=== PATIENT | male | born 1990 | race American Indian/Alaskan Native ===

== ENCOUNTER 2019-03-26 12:28 | Emergency (ER) | payer SELFPAY ==
--- NOTE | 2019-03-26 13:34 | EDM.PDOC ---
ED HPI GENERAL MEDICAL PROBLEM - General Chief Complaint: Lower Extremity Injury/Pain Stated Complaint: RT ANKLE INJURY Time Seen by Provider: 03/26/19 13:23 Source of Information: Reports: Patient History Limitations: Reports: No Limitations - History of Present Illness INITIAL COMMENTS - FREE TEXT/NARRATIVE: 28-year-old male presents for evaluation and treatment of right ankle injury. Patient reports last night he was [place] [employer] this weekend and stepped into a gopher hole. This occurred around 1800 yesterday. States he has been icing it and utilizing compression but he has significant pain to the right lateral ankle. Swelling as well. Has been walking on it but reports pain with this. Reports his fractured ankle in the past but he has no hardware in there. He reports when he fell he heard some snapping and popping sounds. Unsure exactly of his foot inverted or how he fell. Denies any numbness or tingling to the foot and ankle. Difficulty walking due to pain. Location: Reports: Lower Extremity, Right Right Ankle Pain Score (Numeric/FACES): 8 - Related Data Allergies Allergy/AdvReac Type Severity Reaction Status Date / Time No Known Allergies Allergy Verified 03/26/19 12:37 Home Meds: Home Meds Ibuprofen 600 mg PO Q6HR PRN 03/26/19 [History] Past Medical History - Past Surgical History HEENT Surgical History: Reports: Oral Surgery Other HEENT Surgeries/Procedures: [place] tooth Social & Family History - Tobacco Use Packs/Tins Daily: 1 - Caffeine Use Caffeine Use: Reports: Tea - Alcohol Use Days Per Week of Alcohol Use: 2 Number of Drinks Per Day: 20 Total Drinks Per Week: 40 - Recreational Drug Use Recreational Drug Use: No Review of Systems - Review of Systems Review Of Systems: See Below Musculoskeletal: Reports: Foot Pain (Right), Joint Pain (Right ankle), Joint Swelling (Right ankle) Skin: Denies: Bruising, Erythema, Wound Neurological: Reports: Difficulty Walking. Denies: Numbness, Tingling ED EXAM, GENERAL - Physical Exam Exam: See Below Exam Limited By: No Limitations General Appearance: Alert, WD/WN, No Apparent Distress, Obese Throat/Mouth: Normal Inspection, Normal Voice, No Airway Compromise Respiratory/Chest: No Respiratory Distress Cardiovascular: Normal Peripheral Pulses, Regular Rate, Rhythm Peripheral Pulses: 2+: Radial (L), Radial (R) Extremities: Joint Swelling (right ankle), Limited Range of Motion (right ankle) , Other (pain to the right lateral malleolus, minor discomfort across the dorsal foot). No: Increased Warmth Neurological: Alert, Oriented, Normal Cognition Psychiatric: Normal Affect, Normal Mood Skin Exam: Warm, Dry, Normal Color. No: Ecchymosis, Erythema, Increased Warmth Course - Vital Signs Last Recorded V/S: Last Vital Signs Temp 96.5 F 03/26/19 12:39 Pulse 88 03/26/19 12:39 Resp 18 03/26/19 12:39 BP 153/99 H 03/26/19 12:39 Pulse Ox 99 03/26/19 12:39 - Orders/Labs/Meds Orders: Active Orders 24 hr Category Date Time Status Durable Medical Equipment for Discharge [DME for Oth 03/26/19 14:47 Ordered Discharge] [COMM] Stat - Radiology Interpretation Free Text/Narrative:: Right ankle: Four views of the right ankle were obtained. Comparison: No previous right ankle study. Ankle mortise is symmetric. Soft tissue swelling is seen. Calcifications are noted off the lateral talus believed to be due to old injury. Calcifications are also noted off the medial talus also felt to be due to old injury. No acute fracture or other bony abnormality is seen. Impression: 1. Soft tissue swelling. Old injury as noted above. 2. No acute bony abnormality is appreciated. Right foot: 4 views of the right foot were obtained. Comparison: No previous foot exam. Joint spaces are maintained. No fracture, dislocation or other bony abnormality is seen. Impression: 1. Nothing acute is seen on right foot exam. - Re-Assessments/Exams Free Text/Narrative Re-Assessment/Exam: 03/26/19 14:46 reviewed xray results with the patient. will discharge home at this time. Recommendations given for ankle sprain. Discharge instructions as documented. Departure - Departure Time of Disposition: 14:47 Disposition: Home, Self-Care 01 Condition: Fair Clinical Impression: Ankle sprain - Discharge Information *PRESCRIPTION DRUG MONITORING PROGRAM REVIEWED*: No *COPY OF PRESCRIPTION DRUG MONITORING REPORT IN PATIENT CHANDU: No Instructions: Ankle Sprain With Phase II Rehab-SportsMed, Ankle Sprain, Easy-to -Read Referrals: PCP,None [Primary Care Provider] - Robinson Cavanaugh MD [Physician] - Forms: ED Department Discharge, ED Return to Work/School Form Additional Instructions: crutches and KOURTNEY bandage x 1 week OTC tylenol and motrin as needed for pain and swelling. Ice and elevate the ankles much as you able to.. may work, recommend light duty will and using crutches. Follow-up with ortho in 2 weeks if not better. Recommend Dr. Cavanaugh, call to schedule with him. Please return to the ER if you symptoms change or worsen. - My Orders Last 24 Hours: My Active Orders 03/26/19 14:47 Durable Medical Equipment for Discharge [DME for Discharge] [COMM] Stat - Assessment/Plan Last 24 Hours: My Active Orders 03/26/19 14:47 Durable Medical Equipment for Discharge [DME for Discharge] [COMM] Stat
--- NOTE | 2019-03-26 14:24 | CR ---
Right ankle: Four views of the right ankle were obtained. Comparison: No previous right ankle study. Ankle mortise is symmetric. Soft tissue swelling is seen. Calcifications are noted off the lateral talus believed to be due to old injury. Calcifications are also noted off the medial talus also felt to be due to old injury. No acute fracture or other bony abnormality is seen. Impression: 1. Soft tissue swelling. Old injury as noted above. 2. No acute bony abnormality is appreciated. Diagnostic code #2
--- NOTE | 2019-03-26 14:44 | CR ---
Right foot: Four views of the right foot were obtained. Comparison: No previous foot exam. Joint spaces are maintained. No fracture, dislocation or other bony abnormality is seen. Impression: 1. Nothing acute is seen on right foot exam. Diagnostic code #1
== END 2019-03-26 15:15 | disposition home or self-care (01) ==
LOC: JD.ED 12:28
DX: S93.401A Sprain of unspecified ligament of right ankle, initial encounter (principal); Z98.890 Other specified postprocedural states; W17.2XXA Fall into hole, initial encounter
CPT/HCPCS: 73610-26-RT; 73610-RT; 73630-26-RT; 73630-RT; 99282; 99283-25

== ENCOUNTER 2019-11-27 12:34 | Emergency (ER) | payer SELFPAY ==
[2019-11-27] MEDS ORDERED: Sodium Chloride 0.9% 10 ML Syringe FLUSH PRN (13:05)
[2019-11-27] MEDS ORDERED: HYDROmorphone 0.5 MG/0.5 ML Syringe IVPUSH ONE (13:06)
[2019-11-27] MEDS ORDERED: Alum Hydrox/Mag Hydrox/Simeth 30 ML, Lidocaine 2% 15 ML PO ONE ×2 (13:06)
--- NOTE | 2019-11-27 13:23 | EDM.PDOC ---
<Carola Cardoza - Last Filed: 11/27/19 13:12> ED HPI GENERAL MEDICAL PROBLEM - General Chief Complaint: Abdominal Pain Stated Complaint: ABDOMINAL PAIN Time Seen by Provider: 11/27/19 12:43 Source of Information: Reports: Patient History Limitations: Reports: No Limitations - History of Present Illness INITIAL COMMENTS - FREE TEXT/NARRATIVE: Patient is a pleasant 29-year-old male who presents to the ED with complaints of intermittent abdominal pain and cramping that started on Tuesday, today is Tuesday. He states the pain started after he ingested hot salsa that his friend had made. He states the salsa was very spicy. The pain occurs more in the upper quadrant and starts with a pain that feels like he got punched in the stomach and then goes to cramping. He states the pain stays for a few minutes and then it resolved. The pain increases 20-30 minutes after eating. He does not have a history of acid reflux or ulcers. He reports this pain is different than the occasional heartburn he gets. He denies nausea, vomiting, or diarrhea. He has been having regular bowel movements with the last being this morning. [place] chest pain, shortness of breath, and fever/chills. Of note, the patient also reports this weekend he drank about an 18 pack of beer each day and smoked marijuana. He feels the marijuana helped with the abdominal pain. Treatments MACHINE BASTER: Reports: Other (see below) Other Treatments MACHINE BASTER: none Upper Abdomen Pain Score (Numeric/FACES): 8 - Related Data Allergies Allergy/AdvReac Type Severity Reaction Status Date / Time No Known Allergies Allergy Verified 03/26/19 12:37 Home Meds: Home Meds . [No Known Home Meds] 11/27/19 [History] Past Medical History - Past Surgical History HEENT Surgical History: Reports: Oral Surgery, Tonsillectomy Other HEENT Surgeries/Procedures: [place] tooth Social & Family History - Tobacco Use Smoking Status *Q: Current Every Day Smoker Years of Tobacco use: 4 Packs/Tins Daily: 1 - Caffeine Use Caffeine Use: Reports: Soda, Tea - Recreational Drug Use Recreational Drug Type: Reports: Marijuana/Hashish Other Recreational Drug Type: 0ccasionally Recreational Drug Use Frequency: Socially ED ROS GENERAL - Review of Systems Review Of Systems: See Below Constitutional: Reports: No Symptoms. Denies: Fever, Chills, Weakness HEENT: Reports: No Symptoms. Denies: Throat Pain Respiratory: Reports: No Symptoms. Denies: Shortness of Breath, Cough Cardiovascular: Reports: No Symptoms. Denies: Chest Pain, Edema, Syncope GI/Abdominal: Reports: Abdominal Pain (upper quadrants), Decreased Appetite. Denies: Bloody Stool, Diarrhea, Nausea, Vomiting : Reports: No Symptoms. Denies: Dysuria Musculoskeletal: Reports: No Symptoms. Denies: Neck Pain, Back Pain Skin: Reports: No Symptoms Neurological: Reports: No Symptoms. Denies: Dizziness, Headache, Syncope Psychiatric: Reports: No Symptoms ED EXAM, GI/ABD - Physical Exam Exam: See Below Exam Limited By: No Limitations General Appearance: Alert, WD/WN, No Apparent Distress Throat/Mouth: Normal Inspection, Normal Lips, Normal Teeth, Normal Gums, Normal Oropharynx, Normal Voice, No Airway Compromise Head: Atraumatic, Normocephalic Neck: Normal Inspection, Supple, Non-Tender, Full Range of Motion Respiratory/Chest: No Respiratory Distress, Lungs Clear, Normal Breath Sounds, No Accessory Muscle Use, Chest Non-Tender Cardiovascular: Normal Peripheral Pulses, Regular Rate, Rhythm, No Edema, No Gallop, No Murmur, No Rub GI/Abdominal Exam: Normal Bowel Sounds, Soft, Non-Tender, No Organomegaly, No Distention, No Mass Back Exam: Normal Inspection, Full Range of Motion. No: CVA Tenderness (L), CVA Tenderness (R) Extremities: Normal Inspection, Normal Range of Motion, Non-Tender, Normal Capillary Refill, No Pedal Edema Neurological: Alert, Oriented, Normal Cognition, Normal Gait, No Motor/Sensory Deficits Psychiatric: Normal Affect, Normal Mood Skin Exam: Warm, Dry, Intact, Normal Color, No Rash Course - Vital Signs Last Recorded V/S: Last Vital Signs Temp 97.9 F 11/27/19 15:24 Pulse 64 11/27/19 15:24 Resp 16 11/27/19 15:24 BP 134/94 H 11/27/19 15:24 Pulse Ox 97 11/27/19 15:24 - Orders/Labs/Meds Orders: Active Orders 24 hr Category Date Time Status Peripheral IV Care [RC] . DIRECTED Care 11/27/19 13:06 Active KUB [Abdomen 1V Flat] [CR] Stat Exams 11/27/19 13:07 Taken Sodium Chloride 0.9% [Saline Flush] Med 11/27/19 13:05 Active 10 ml FLUSH ASDIRECTED PRN Peripheral IV Insertion Adult [OM.PC] Routine Oth 11/27/19 13:05 Ordered Medication Orders Sodium Chloride (Saline Flush) 10 ml FLUSH ASDIRECTED PRN PRN Reason: Keep Vein Open Last Admin: 11/27/19 13:34 Dose: 10 ml Labs: Laboratory Tests 11/27/19 11/27/19 Range/Units 13:15 13:15 WBC 5.76 (4.23-9.07) K/mm3 RBC 4.53 L (4.63-6.08) M/mm3 Hgb 14.2 (13.7-17.5) gm/dl Hct 43.2 (40.1-51.0) % MCV 95.4 H (79.0-92.2) fl MCH 31.3 (25.7-32.2) pg MCHC 32.9 (32.2-35.5) g/dl RDW Std Deviation 42.2 (35.1-43.9) fL Plt Count 254 (163-337) K/mm3 MPV 9.4 (9.4-12.3) fl Neut % (Auto) 56.7 (34.0-67.9) % Lymph % (Auto) 31.4 (21.8-53.1) % [place] % (Auto) 7.6 (5.3-12.2) % Eos % (Auto) 3.5 (0.8-7.0) Baso % (Auto) 0.5 (0.1-1.2) % Neut # (Auto) 3.26 (1.78-5.38) K/mm3 Lymph # (Auto) 1.81 (1.32-3.57) K/mm3 [place] # (Auto) 0.44 (0.30-0.82) K/mm3 Eos # (Auto) 0.20 (0.04-0.54) K/mm3 Baso # (Auto) 0.03 (0.01-0.08) K/mm3 Sodium 141 (136-145) mEq/L Potassium 4.1 (3.5-5.1) mEq/L Chloride 106 (98-107) mEq/L Carbon Dioxide 24 (21-32) mEq/L Anion Gap 15.1 H (5-15) BUN 13 (7-18) mg/dL Creatinine 1.1 (0.7-1.3) mg/dL Est Cr Clr Drug Dosing 116.29 mL/min Estimated GFR (MDRD) > 60 (>60) mL/min BUN/Creatinine Ratio 11.8 L (14-18) Glucose 110 H (74-106) mg/dL Calcium 9.0 (8.5-10.1) mg/dL Total Bilirubin 0.3 (0.2-1.0) mg/dL GGT 26 (15-85) U/L AST 27 (15-37) U/L ALT 42 (16-63) U/L Alkaline Phosphatase 98 (46-116) U/L Total Protein 7.5 (6.4-8.2) g/dl Albumin 3.7 (3.4-5.0) g/dl Globulin 3.8 gm/dL Albumin/Globulin Ratio 1.0 (1-2) Lipase 120 (73-393) U/L Meds: Medications Generic Name Dose Route Start Last Admin Trade Name Freq PRN Reason Stop Dose Admin Sodium Chloride 10 ml 11/27/19 13:05 11/27/19 13:34 Saline Flush FLUSH 10 ml ASDIRECTED PRN Administration Keep Vein Open Discontinued Medications Generic Name Dose Route Start Last Admin Trade Name Freq PRN Reason Stop Dose Admin Al Hydroxide/Mg Hydroxide 30 0 ml 11/27/19 13:06 11/27/19 13:30 ml/ Lidocaine HCl 15 ml PO 11/27/19 13:07 45 ml ONETIME ONE Administration Hydromorphone HCl 0.5 mg 11/27/19 13:06 11/27/19 13:35 Dilaudid IVPUSH 11/27/19 13:07 Not Given ONETIME ONE Departure - Departure Disposition: Home, Self-Care 01 Clinical Impression: Upper abdominal pain, Mild heartburn - Discharge Information Instructions: Heartburn, [id number] Referrals: PCP,None [Primary Care Provider] - Forms: ED Department Discharge, ED Return to Work/School Form Additional Instructions: You were evaluated in the ER today for your upper abdominal pain. Laboratory evaluation demonstrated no remarkable values at this time, your pain is consistent in nature with either an ulcer or gallbladder issues. Recommend that you obtain a primary care provider to try to evaluate the symptoms further. Our clinic number [phone], any family practice provider would be able to provide you with the services. You should obtain [id number] Prilosec (omeprazole) and take as directed on the back of the box for further heartburn type symptoms. This medication does take a few days to start working, so you will need to take this as prescribed for a few days before you can receive full benefit. Family practice should be able to provide you with a referral for upper endoscopy versus gallbladder ultrasound or other gallbladder tests for further evaluation. Please try to refrain from any spicy foods, excessive alcohol ingestion, as these can aggravate heartburn type symptoms. Try to stick to more of a bland diet for the next few days to see if this does not help as well. Please return to the ER at any time if your symptoms change or worsen. Sepsis Event Note - Evaluation Sepsis Screening Result: No Definite Risk - Focused Exam Vital Signs: Vital Signs Temp Pulse Resp BP Pulse Ox 11/27/19 15:24 97.9 F 64 16 134/94 H 97 11/27/19 12:44 97.5 F 69 20 149/86 H 97 Date Exam was Performed: 11/27/19 Time Exam was Performed: 13:12 - My Orders Last 24 Hours: My Active Orders 11/27/19 13:05 Sodium Chloride 0.9% [Saline Flush] 10 ml FLUSH ASDIRECTED PRN Peripheral IV Insertion Adult [OM.PC] Routine 11/27/19 13:06 Peripheral IV Care [RC] . DIRECTED 11/27/19 13:07 KUB [Abdomen 1V Flat] [CR] Stat - Assessment/Plan Last 24 Hours: My Active Orders 11/27/19 13:05 Sodium Chloride 0.9% [Saline Flush] 10 ml FLUSH ASDIRECTED PRN Peripheral IV Insertion Adult [OM.PC] Routine 11/27/19 13:06 Peripheral IV Care [RC] . DIRECTED 11/27/19 13:07 KUB [Abdomen 1V Flat] [CR] Stat <Dorene Tate - Last Filed: 11/27/19 16:05> Course - Orders/Labs/Meds Labs: Laboratory Tests 11/27/19 11/27/19 Range/Units 13:15 13:15 WBC 5.76 (4.23-9.07) K/mm3 RBC 4.53 L (4.63-6.08) M/mm3 Hgb 14.2 (13.7-17.5) gm/dl Hct 43.2 (40.1-51.0) % MCV 95.4 H (79.0-92.2) fl MCH 31.3 (25.7-32.2) pg MCHC 32.9 (32.2-35.5) g/dl RDW Std Deviation 42.2 (35.1-43.9) fL Plt Count 254 (163-337) K/mm3 MPV 9.4 (9.4-12.3) fl Neut % (Auto) 56.7 (34.0-67.9) % Lymph % (Auto) 31.4 (21.8-53.1) % [place] % (Auto) 7.6 (5.3-12.2) % Eos % (Auto) 3.5 (0.8-7.0) Baso % (Auto) 0.5 (0.1-1.2) % Neut # (Auto) 3.26 (1.78-5.38) K/mm3 Lymph # (Auto) 1.81 (1.32-3.57) K/mm3 [place] # (Auto) 0.44 (0.30-0.82) K/mm3 Eos # (Auto) 0.20 (0.04-0.54) K/mm3 Baso # (Auto) 0.03 (0.01-0.08) K/mm3 Sodium 141 (136-145) mEq/L Potassium 4.1 (3.5-5.1) mEq/L Chloride 106 (98-107) mEq/L Carbon Dioxide 24 (21-32) mEq/L Anion Gap 15.1 H (5-15) BUN 13 (7-18) mg/dL Creatinine 1.1 (0.7-1.3) mg/dL Est Cr Clr Drug Dosing 116.29 mL/min Estimated GFR (MDRD) > 60 (>60) mL/min BUN/Creatinine Ratio 11.8 L (14-18) Glucose 110 H (74-106) mg/dL Calcium 9.0 (8.5-10.1) mg/dL Total Bilirubin 0.3 (0.2-1.0) mg/dL GGT 26 (15-85) U/L AST 27 (15-37) U/L ALT 42 (16-63) U/L Alkaline Phosphatase 98 (46-116) U/L Total Protein 7.5 (6.4-8.2) g/dl Albumin 3.7 (3.4-5.0) g/dl Globulin 3.8 gm/dL Albumin/Globulin Ratio 1.0 (1-2) Lipase 120 (73-393) U/L - Re-Assessments/Exams Free Text/Narrative Re-Assessment/Exam: 11/27/19 13:30 I have read and reviewed the student's HPI and examined the patient and agree with Raymundo Cardoza NP student. I did order IV to be placed, GI cocktail to be given with 0.5 mg of Dilaudid for pain relief. Labs to be drawn to include CBC , CMP, GGT and a lipase also a KUB has been ordered for further evaluation. Due to the patient's pain having an intermittent or colicky component, it is suspicious for gallbladder etiology. Patient does not have a primary care provider however. If labs are unremarkable at today's visit. I will suggest that he get a primary care provider, and follow-up for further studies of his gallbladder function vs EGD for possible ulcer. 11/27/19 14:43 The patient did report symptomatic relief with a GI cocktail. I will place him on [id number] Prilosec for symptomatic management, as labs are unremarkable, this could be ulcer in nature versus gallbladder etiology. I will have him establish with a primary care provider to try to delineate his symptoms further. Departure - Departure Time of Disposition: 14:44 Condition: Fair - Discharge Information *PRESCRIPTION DRUG MONITORING PROGRAM REVIEWED*: No *COPY OF PRESCRIPTION DRUG MONITORING REPORT IN PATIENT CHANDU: No Sepsis Event Note - Focused Exam Date Exam was Performed: 11/27/19 Time Exam was Performed: 16:04
--- NOTE | 2019-11-27 21:05 | CR ---
Abdomen: Supine view of the abdomen was obtained. Comparison: No previous study. Bowel gas pattern appears normal. No abnormal calcifications or soft tissue abnormality is seen. Bony structures shows mild degenerative change within the spine. Impression: 1. Nothing acute is seen on supine abdominal x-ray. Diagnostic code #1 This report was dictated in [place] Standard Time
== END 2019-11-27 15:30 | disposition home or self-care (01) ==
LOC: EDBD 12:34 → JD.ED 12:34
DX: R12 Heartburn (principal); F17.210 Nicotine dependence, cigarettes, uncomplicated
CPT/HCPCS: 36415; 74018; 80053; 82977; 83690; 85025; 99284; A9270